=== PATIENT | female | born 1985 | race Caucasian/White ===

== ENCOUNTER 2017-05-18 15:24 | Emergency (ER) | payer OTHER ==
[~2017-05-18] VITALS: Ht 170.2 cm; Wt 74.4 kg
[~2017-05-18 15:24] MED LIST: ALPR-475 PO
[2017-05-18 15:26] VITALS: BP 134/88
== END 2017-05-18 16:34 | disposition home or self-care (01) ==
LOC: ED 16:28
DX: L03.031 Cellulitis of right toe (principal); F17.210 Nicotine dependence, cigarettes, uncomplicated
CPT/HCPCS: 99283

== ENCOUNTER → 2017-07-02 | Outpatient (CLI) | payer OTHER | END | disposition home or self-care (01) | LOC: CFH 11:14 | PROVIDERS: ATTEND Family Medicine | DX: M15.9 Polyosteoarthritis, unspecified (principal) | CPT/HCPCS: 73523 ==